=== PATIENT | female | born 1965 | race Caucasian/White ===

== ENCOUNTER 2017-02-19 07:15 | Day surgery (SDC) | payer OTHER ==
[~2017-02-19] VITALS: Ht 157.5 cm; Wt 94.4 kg
[2017-02-19] MEDS ORDERED: LOSARTAN (08:16)
[2017-02-19] MEDS ORDERED: AMLODOPINE (08:16)
[2017-02-19] MEDS ORDERED: VENTOLIN (08:16)
[2017-02-19] MEDS ORDERED: ASPIRIN (08:16)
[2017-02-19] MEDS ORDERED: PROPOFOL 40 ML ONE (08:23)
--- NOTE | 2017-02-19 09:13 | OPPN ---
Date/Time of Note Date/Time of Note DATE: 02/19/17 TIME: 09:07 Proc Note GI Procedure Date 02/19/17 Pre-procedure Diagnosis screening colonoscopy Post-procedure Diagnosis 2 sessile polyps hep flex Procedure Performed: Colonoscopy Surgeon Dr Pierce Systems Program Manager none Anesthesia Type: MAC Anesthesiologist: ISRRAEL GARCIA MD EBL none Transfusion required none Biopsy 1: bx colon polyp Grafts/Implants none Tubes/Drains none Complication(s) none Pt Condition post procedure: stable Disposition: PACU Indications: screening/surveillance Operative\Procedure Findings 2 polyps hep flex Procedure Description see dictation DIANE PIERCE MD Feb 19, 2017 09:13
[2017-02-19 09:27] VITALS: BP 166/95; RESP 14
--- NOTE | 2017-02-19 10:21 | GILP ---
DATE OF PROCEDURE: 02/19/2017 PROCEDURE: Screening colonoscopy, rule out colon polyps. POSTPROCEDURE DIAGNOSIS: Two small polyps noted next to each other in the hepatic flexure. These were removed with the cold biopsy forceps. Rest of the colon is normal. DESCRIPTION OF PROCEDURE: After informed written consent was obtained, the patient was asked to lie on the left lateral side. Intravenous anesthesia was given by Anesthesia with . When the patient became somnolent, Olympus video colonoscope was introduced into the rectum, and scope was introduced all the way to the cecum. Entire colon appeared normal except for 2 small polyps noted next to each other in the hepatic flexure. These were removed with the cold biopsy forceps. No additional abnormalities detected. Ileocecal valve and appendiceal opening were identified on the way out. No hemorrhoids were noted, and the procedure was terminated. PLAN: Recommend repeat colonoscopy in 10 years unless something shows up on the pathology of the polyps. Dictated By: Dionisio Pierce MD /valentin/namita /Document#: [id number]
== END 2017-02-19 11:01 | disposition home or self-care (01) ==
LOC: GIL 07:15
PROVIDERS: ATTEND Internal Medicine Gastroenterology
DX: Z12.11 Encounter for screening for malignant neoplasm of colon (principal); D12.6 Benign neoplasm of colon, unspecified; E78.5 Hyperlipidemia, unspecified; I10 Essential (primary) hypertension; J45.909 Unspecified asthma, uncomplicated
CPT/HCPCS: 45380; 84703; 88305; Z7610